=== PATIENT | male | born 1965 | race Caucasian/White ===

== ENCOUNTER 2023-02-04 07:40 | Day surgery (SDC) | payer OTHER, SELFPAY ==
[2023-02-04] VITALS (7 sets, daily range): BP systolic 114–142; BP diastolic 79–94; PULSE 78–102; RESP 15–21; TEMP 36.2–36.7; O2SAT 94–99; BMI 31.1
--- NOTE | 2023-02-04 | PATH_ITS ---
[facility] Accession Number: [id number] No. of containers..02 Tissue . 01 Material submitted: . PART A: stomach - ANTRUM PART B: esophagus - MID ESOPHAGUS . 01 Diagnosis: A. Antrum, Biopsy: Gastric mucosa with minimal chronic nonspecific inflammation. No Helicobacter organisms identified on H/E slide. No intestinal metaplasia, dysplasia, or malignancy. . B. Mid Esophagus, Biopsy: No tissue present (did not survive processing). [facility] 02/07/2023 1118 Local . 01 Electronically signed: . Sherly Mi MD, Pathologist NPI- [id number] . 01 Gross description: . Part A: ANTRUM: Received in formalin are 2 fragment(s) of crain, soft tissue measuring 0.3 x 0.3 x 0.1 cm to 0.2 x 0.2 x 0.1 cm submitted entirely in 1 cassette(s) Part B: MID ESOPHAGUS: Received in formalin is 1 fragment(s) of crain, soft tissue measuring 0.1 x 0.1 x 0.1 cm submitted entirely in 1 cassette(s) Minute specimen, may not survive processing. /[facility] 02/05/2023 1657 Local . 01 Pathologist provided ICD-10: K29.70 . 01 CPT . 546454, 191536 Specimen Comment: A courtesy copy of this report has been sent to [phone] Performed at: 01 [facility] [address] [place] [address], [place], [place] [id number] MD Ry Johnson MD Phone: [phone]
[2023-02-04] MEDS: LACTATED RINGERS 1,000 ML 100 ML IV (07:51)
--- NOTE | 2023-02-04 08:38 | P.HP_ITS ---
History of Present Illness History of Present Illness Date Patient Seen: 02/04/23 Time Patient Seen: 08:38 Chief complaint: SDC Narrative: I reviewed my recent office note. No significant changes. He is off his Xarelto for 2 days [facility] Social History Smoking Status: Never smoker alcohol intake: former Meds Home Medications and Allergies Home Medications Medication Instructions Recorded Confirmed Type alprazolam 0.5 mg tablet 0.5 mg PO DAILY 02/04/23 02/04/23 History atorvastatin 40 mg tablet 40 mg PO BEDTIME 02/04/23 02/04/23 History omeprazole 20 mg capsule,delayed 20 mg PO DAILY 02/04/23 02/04/23 History release rivaroxaban 10 mg tablet (Xarelto) 10 mg PO DAILY 02/04/23 02/04/23 History Allergies Allergy/AdvReac Type Severity Reaction Status Date / Time Sulfa (Sulfonamide Allergy Intermediate Rash Verified 02/04/23 07:49 Antibiotics) Review of Systems Review of Systems ROS: Yes All systems reviewed with the patient and are negative except as otherwise documented Exam Vital Signs (past 8 hours): - 02/04/23 08:02 Temperature 97.4 F L Pulse Rate 102 H Respiratory Rate 16 Blood Pressure 142/94 H Pulse Oximetry 97 Oxygen Delivery Method Room Air Oxygen Delivery Method Room Air Const General: cooperative HENMT Head: normal to inspection Eyes General: appearance normal, both eyes and all related structures Neck Neck: normal visual inspection Chest Chest: normal inspection of the chest Resp Effort & Inspection: normal respiratory effort Cardio Rate: regular rate GI Inspection: normal to inspection Skin General: no rashes or lesions noted Neuro General: patient alert and patient awake Extrem General: normal to inspection and no pedal edema Psych Appearance: grossly normal Assessment & Plan Assessment & Plan narrative: 57-year-old male with eosinophilic esophagitis, GERD, and family history of colon cancer. EGD and colonoscopy are pursued today.
--- NOTE | 2023-02-04 08:40 | PM.PREOP ---
Pre-operative Note Interval Note History & Physical reviewed/Exam performed by Physician: Yes Changes to H&P: No ASA Class (for procedural sedation): II
--- NOTE | 2023-02-04 10:10 | PM.OP.EC ---
Operative Date/Time/Diagnoses Date of procedure: 02/04/23 Time of procedure: 10:11 Pre-op diagnosis: History of GERD, history of eosinophilic esophagitis, family history of colon cancer. Post-op diagnosis: same Procedure & Clinicians Study performed: EGD with biopsies and colonoscopy Same procedure as scheduled: Yes Indications: History of GERD, history of eosinophilic esophagitis, family history of colon cancer. Surgeon: Dwayne Christensen Procedure Notes SCOAP/Timeout: Done Procedure in detail: After the risks and benefits were explained, written and verbal informed consent was obtained. The patient was brought into the procedure room and placed into the left lateral decubitus position. Please see anesthesia notes for sedation details. The scope was introduced into the mouth through the bite block and advanced under direct visualization to the 2nd portion of the duodenum. The scope was slowly withdrawn carefully examining the mucosa for any defects or lesions. Retroflexed views were accomplished in the stomach. The stomach was decompressed, the scope was then removed from the patient who tolerated the procedure well. The patient was then turned around and a digital rectal examination was accomplished. The scope was introduced into the rectum and advanced to the cecum as identified by the appendiceal orifice and ileocecal valve. The scope was slowly withdrawn to carefully examine the mucosa for any defects or lesions. Multiple direct views were made through the dentate line for exclusion of pathology the colon was decompressed scope removed from the patient who tolerated the procedure well. Adult colonoscope Bowel prep adequate Scope withdrawal time: 7 minutes Sedation minutes: 34 Complications: none Impression: 1. Duodenum: This was normal from the bulb through to the 2nd portion. 2. Stomach: Minimal gastropathy was appreciated characterized by some mild erythema in the antrum. Biopsies were acquired for exclusion of H pylori. No ulcers no outlet obstruction no mass lesions. Retroflexed views of the LES were unremarkable. 3. Esophagus: The squamocolumnar junction correlated with the top of the gastric folds. GEJ was at 40 cm from the incisors. There was a very subtle sliding hiatal hernia. There was no evidence of any stricturing or stenosis at the GE junction. The midesophagus was characterized by some subtle circumferential tightly grouped folds consistent with a history of eosinophilic esophagitis. Repeat biopsies were acquired from mid esophagus for microscopic examination. 4. Colon: No significant polyps mass lesions or inflammatory features identified throughout. Patient had evidence of grade 3-4 nonbleeding nonthrombosed hemorrhoids. Endoscopic diagnosis 1. Subtle sliding hiatal hernia 2. Gastropathy 3. Tightly grouped circumferential esophageal rings 4. Hemorrhoids 5. Otherwise visually unremarkable colonoscopy Post-procedure Plan for aftercare: 1. Await histopathology. 2. Continue anti-reflux therapy. 3. Repeat colonoscopy 5 years. 4. Okay to restart Xarelto in the next 24-48 hours. Disposition: PACU
== END 2023-02-04 11:00 | disposition home or self-care (01) ==
PROVIDERS: PCP Family Medicine; Referring Provider Internal Medicine Gastroenterology; Visit Provider Internal Medicine Gastroenterology
PROC: 0DJ08ZZ Inspection of Upper Intestinal Tract, Via Natural or Artificial Opening Endoscopic (ICD-10-PCS; CPT 43235; principal; 2023-02-04 09:00)
PROC: 0DJD8ZZ Inspection of Lower Intestinal Tract, Via Natural or Artificial Opening Endoscopic (ICD-10-PCS; CPT 45378; 2023-02-04 09:00)
DX: Z12.11 Encounter for screening for malignant neoplasm of colon (principal); Z80.0 Family history of malignant neoplasm of digestive organs; K64.3 Fourth degree hemorrhoids; K21.00 Gastro-esophageal reflux disease with esophagitis, without bleeding; K44.9 Diaphragmatic hernia without obstruction or gangrene; K29.50 Unspecified chronic gastritis without bleeding
CPT/HCPCS: 45378; 43239; J2704